=== PATIENT | female | born 1990 | race Caucasian/White ===

== ENCOUNTER 2022-02-18 20:24 | Emergency (ER) | payer OTHER | END 2022-02-18 21:05 | disposition home or self-care (01) | LOC: ERS 20:24 | DX: R05.1 Acute cough (principal); D64.9 Anemia, unspecified; Z20.822 Contact with and (suspected) exposure to COVID-19 | CPT/HCPCS: 99283; U0003; U0005 ==

== ENCOUNTER 2022-04-20 10:50 | Emergency (ER) | payer OTHER ==
[2022-04-20] MEDS ORDERED: Ibuprofen 200 MG TAB ONE (12:36)
== END 2022-04-20 12:39 | disposition home or self-care (01) ==
LOC: ERS 10:50
DX: B34.9 Viral infection, unspecified (principal); Z20.822 Contact with and (suspected) exposure to COVID-19
CPT/HCPCS: 87804; U0003; U0005

== ENCOUNTER 2022-05-16 14:17 | Emergency (ER) | payer OTHER | END 2022-05-16 16:00 | disposition home or self-care (01) | LOC: ERS 14:17 | DX: B34.9 Viral infection, unspecified (principal); M21.612 Bunion of left foot | CPT/HCPCS: 99283 ==

== ENCOUNTER 2022-09-30 20:31 | Emergency (ER) | payer OTHER ==
[2022-09-30] MEDS ORDERED: Ondansetron ODT 4 MG TAB ONE (20:50)
== END 2022-09-30 21:05 | disposition home or self-care (01) ==
LOC: ERS 20:31
DX: A08.4 Viral intestinal infection, unspecified (principal)
CPT/HCPCS: 99283; Q0162

== ENCOUNTER 2022-10-15 16:07 | Emergency (ER) | payer OTHER ==
[2022-10-15 18:20] LABS: SARS-CoV-2 NAA Rapid Test Not Detected (NotDetected)
== END 2022-10-15 18:50 | disposition home or self-care (01) ==
LOC: ERS 16:07
DX: J00 Acute nasopharyngitis [common cold] (principal); Z20.822 Contact with and (suspected) exposure to COVID-19
CPT/HCPCS: 99283

== ENCOUNTER 2023-01-10 10:07 | Emergency (ER) | payer OTHER | END 2023-01-10 10:51 | LOC: ERS 10:07 | DX: R11.0 Nausea (principal) | CPT/HCPCS: 99283 ==

== ENCOUNTER 2023-02-06 03:37 | Emergency (ER) | payer OTHER ==
[2023-02-06] MEDS ORDERED: HYDROcodone/Acetaminophen 5/325 mg Tablet ONE (04:02)
== END 2023-02-06 08:09 | disposition home or self-care (01) ==
LOC: ERS 03:37
DX: T23.142A Burn of first degree of multiple left fingers (nail), including thumb, initial encounter (principal); T23.141A Burn of first degree of multiple right fingers (nail), including thumb, initial encounter; T23.162A Burn of first degree of back of left hand, initial encounter; T23.161A Burn of first degree of back of right hand, initial encounter; T22.112A Burn of first degree of left forearm, initial encounter; T22.111A Burn of first degree of right forearm, initial encounter; X10.0XXA Contact with hot drinks, initial encounter
CPT/HCPCS: 99283

== ENCOUNTER 2023-05-10 07:36 | Emergency (ER) | payer OTHER ==
[2023-05-10] MEDS ORDERED: Ibuprofen 800 MG TAB ONE (08:50)
== END 2023-05-10 08:57 | disposition home or self-care (01) ==
LOC: ERS 07:36
DX: M79.672 Pain in left foot (principal)
CPT/HCPCS: 99283

== ENCOUNTER 2023-05-29 08:11 | Emergency (ER) | payer OTHER | END 2023-05-29 08:36 | disposition home or self-care (01) | LOC: ERS 08:11 | DX: R60.9 Edema, unspecified (principal) | CPT/HCPCS: 99283 ==

== ENCOUNTER 2023-07-16 21:12 | Emergency (ER) | payer OTHER | END 2023-07-16 22:22 | disposition home or self-care (01) | LOC: ERS 21:12 | DX: M79.89 Other specified soft tissue disorders (principal) | CPT/HCPCS: 99283 ==

== ENCOUNTER 2023-10-02 17:54 | Emergency (ER) | payer OTHER ==
[2023-10-02] MEDS ORDERED: Ketorolac Tromethamine 30 MG (1 mL) VIAL ONE (18:16)
== END 2023-10-02 18:37 | disposition home or self-care (01) ==
LOC: ERS 17:54
DX: K08.89 Other specified disorders of teeth and supporting structures (principal); Z75.3 Unavailability and inaccessibility of health-care facilities; Z59.86 Financial insecurity
CPT/HCPCS: 96372; 99282; J1885

== ENCOUNTER 2023-11-08 22:33 | Emergency (ER) | payer OTHER | END 2023-11-09 00:12 | disposition home or self-care (01) | LOC: ERS 22:33 | DX: K06.8 Other specified disorders of gingiva and edentulous alveolar ridge (principal); K08.89 Other specified disorders of teeth and supporting structures | CPT/HCPCS: 99282 ==